=== PATIENT | female | born 1940 | race Caucasian/White ===

== ENCOUNTER 2021-04-25 18:47 | Inpatient (IN) ==
[2021-04-25] MEDS: Ondansetron ODT 4 MG TAB.RAPDIS SL PRN (20:31)
[2021-04-25] MEDS: UREA TP SCH (20:33)
[2021-04-25] MEDS: Melatonin 3 MG TABLET PO SCH (20:48)
[2021-04-25] MEDS: *HR* Glimepiride 4 MG TABLET PO SCH (20:52)
[2021-04-25] MEDS ORDERED: *HR* OxyCODONE/APAP 7.5/325 TABLET PO SCH (21:00)
[2021-04-26] MEDS: *HR* OxyCODONE/APAP 7.5/325 TABLET PO SCH ×6 (01:53→21:00)
[2021-04-26] MEDS: *HR* Enoxaparin 40 MG/0.4 ML SYRINGE SQ SCH (05:47)
[2021-04-26] MEDS: *HR* Glimepiride 4 MG TABLET PO SCH ×2 (08:22→17:46)
[2021-04-26] MEDS: Multivit/Ca/Min/Fe/FA 1 TAB TABLET PO SCH (08:23)
[2021-04-26] MEDS: Aspirin 81 MG TAB.CHEW PO SCH (08:23)
[2021-04-26] MEDS: *HR* Metformin 500 MG TABLET PO SCH ×2 (08:23→17:46)
[2021-04-26] MEDS: hydroCHLOROthiazide 25 MG TABLET PO SCH (08:23)
[2021-04-26] MEDS: amLODIPine 5 MG TABLET PO SCH (08:23)
[2021-04-26] MEDS: lisinopriL 20 MG TABLET PO SCH (08:23)
[2021-04-26] MEDS: Primidone 50 MG TABLET PO SCH (08:23)
[2021-04-26] MEDS: UREA TP SCH ×2 (08:24→20:58)
[2021-04-26] MEDS: Carbidopa/Levodopa 25/100 TABLET PO SCH ×3 (08:48→17:45)
[2021-04-26] MEDS: Melatonin 3 MG TABLET PO SCH (20:57)
[2021-04-26] MEDS: Sennosides/Docusate Sodium TABLET PO SCH (20:57)
[2021-04-27] MEDS: *HR* OxyCODONE/APAP 7.5/325 TABLET PO SCH ×6 (03:19→21:24)
[2021-04-27] MEDS: *HR* Enoxaparin 40 MG/0.4 ML SYRINGE SQ SCH (06:10)
[2021-04-27] MEDS: *HR* Metformin 500 MG TABLET PO SCH ×2 (07:56→16:30)
[2021-04-27] MEDS: *HR* Glimepiride 4 MG TABLET PO SCH ×2 (07:57→16:31)
[2021-04-27] MEDS: Aspirin 81 MG TAB.CHEW PO SCH (07:57)
[2021-04-27] MEDS: Multivit/Ca/Min/Fe/FA 1 TAB TABLET PO SCH (07:57)
[2021-04-27] MEDS: lisinopriL 20 MG TABLET PO SCH (07:57)
[2021-04-27] MEDS: Sennosides/Docusate Sodium TABLET PO SCH ×2 (07:58→21:24)
[2021-04-27] MEDS: hydroCHLOROthiazide 25 MG TABLET PO SCH (07:58)
[2021-04-27] MEDS: amLODIPine 5 MG TABLET PO SCH (07:58)
[2021-04-27] MEDS: Carbidopa/Levodopa 25/100 TABLET PO SCH ×3 (08:01→16:30)
[2021-04-27] MEDS: UREA TP SCH ×2 (08:03→21:29)
[2021-04-27] MEDS: Primidone 50 MG TABLET PO SCH (08:05)
[2021-04-27] MEDS: Ondansetron ODT 4 MG TAB.RAPDIS SL PRN (16:45)
[2021-04-27] MEDS: Melatonin 3 MG TABLET PO SCH (21:22)
[2021-04-28] MEDS: *HR* OxyCODONE/APAP 7.5/325 TABLET PO SCH ×6 (00:45→20:41)
[2021-04-28] MEDS: *HR* Enoxaparin 40 MG/0.4 ML SYRINGE SQ SCH (05:23)
[2021-04-28] MEDS: Sennosides/Docusate Sodium TABLET PO SCH ×2 (08:07→20:42)
[2021-04-28] MEDS: hydroCHLOROthiazide 25 MG TABLET PO SCH (08:07)
[2021-04-28] MEDS: Primidone 50 MG TABLET PO SCH (08:07)
[2021-04-28] MEDS: amLODIPine 5 MG TABLET PO SCH (08:08)
[2021-04-28] MEDS: Aspirin 81 MG TAB.CHEW PO SCH (08:08)
[2021-04-28] MEDS: Multivit/Ca/Min/Fe/FA 1 TAB TABLET PO SCH (08:08)
[2021-04-28] MEDS: *HR* Glimepiride 4 MG TABLET PO SCH ×2 (08:08→17:07)
[2021-04-28] MEDS: *HR* Metformin 500 MG TABLET PO SCH ×2 (08:08→17:07)
[2021-04-28] MEDS: UREA TP SCH ×2 (08:09→20:42)
[2021-04-28] MEDS: lisinopriL 20 MG TABLET PO SCH (08:09)
[2021-04-28] MEDS: Carbidopa/Levodopa 25/100 TABLET PO SCH ×3 (08:46→17:10)
[2021-04-28] MEDS: Melatonin 3 MG TABLET PO SCH (20:42)
[2021-04-29] MEDS: *HR* OxyCODONE/APAP 7.5/325 TABLET PO SCH ×6 (00:11→21:13)
[2021-04-29] MEDS: *HR* Enoxaparin 40 MG/0.4 ML SYRINGE SQ SCH (05:24)
[2021-04-29] MEDS: Aspirin 81 MG TAB.CHEW PO SCH (09:16)
[2021-04-29] MEDS: *HR* Metformin 500 MG TABLET PO SCH ×2 (09:16→17:07)
[2021-04-29] MEDS: lisinopriL 20 MG TABLET PO SCH (09:16)
[2021-04-29] MEDS: Sennosides/Docusate Sodium TABLET PO SCH ×2 (09:16→21:13)
[2021-04-29] MEDS: Multivit/Ca/Min/Fe/FA 1 TAB TABLET PO SCH (09:16)
[2021-04-29] MEDS: amLODIPine 5 MG TABLET PO SCH (09:16)
[2021-04-29] MEDS: Primidone 50 MG TABLET PO SCH (09:16)
[2021-04-29] MEDS: hydroCHLOROthiazide 25 MG TABLET PO SCH (09:16)
[2021-04-29] MEDS: Carbidopa/Levodopa 25/100 TABLET PO SCH ×3 (09:27→17:10)
[2021-04-29] MEDS: UREA TP SCH ×2 (09:27→21:13)
[2021-04-29] MEDS: *HR* Glimepiride 4 MG TABLET PO SCH (09:30)
[2021-04-29] MEDS ORDERED: D5% in Water 1,000 ML IVC PRN (10:51)
[2021-04-29] MEDS ORDERED: *HR* Dextrose 50 % in Water (Syg) 50 ML SYRINGE IVP PRN (10:51)
[2021-04-29] MEDS ORDERED: Dextrose Gel 15 GM/37.5 ML TUBE PO PRN ×2 (10:51)
[2021-04-29 16:15] LABS: Basophils % 0.5 %; Eosinophils # 0.2 K/mcL (0.0-0.6); Eosinophils % 4.3 %; Hematocrit 31.1 % (35.3-44.9); Hemoglobin 10.3 g/dL (11.5-15.4); Immature Granulocytes % 0.7 % (0-4); Lymphocytes # 0.7 K/mcL (0.6-4.6); Mean Corpuscular HGB Conc 33.1 g/dL (31.6-35.5); Mean Corpuscular Hemoglobin 29.5 pg (28.0-33.3); Mean Corpuscular Volume 89.1 fL (83.0-100.0); Mean Platelet Volume 11.6 fL (9.4-12.4); Monocytes # 0.3 K/mcL (0.0-1.3); Monocytes % 7.7 %; Neutrophils # 3.1 K/mcL (1.6-8.9); Platelet Count 171 K/mcL (140-400); Red Blood Count 3.49 M/mcL (3.82-4.97); Segmented Neutrophils % 70.8 %; White Blood Count 4.4 K/mcL (4.3-11.1)
[2021-04-29 16:30] LABS: Calcium 8.8 mg/dL (8.6-10.3); Magnesium 2.1 mg/dL (1.6-2.6); Potassium 3.9 mEq/L (3.5-5.1)
[2021-04-29] MEDS: Ondansetron ODT 4 MG TAB.RAPDIS SL PRN (19:35)
[2021-04-29] MEDS: Melatonin 3 MG TABLET PO SCH (21:13)
[2021-04-30] MEDS: *HR* OxyCODONE/APAP 7.5/325 TABLET PO SCH ×6 (01:04→20:14)
[2021-04-30] MEDS: *HR* Enoxaparin 40 MG/0.4 ML SYRINGE SQ SCH (04:24)
[2021-04-30] MEDS: Primidone 50 MG TABLET PO SCH (09:41)
[2021-04-30] MEDS: Aspirin 81 MG TAB.CHEW PO SCH (09:41)
[2021-04-30] MEDS: lisinopriL 20 MG TABLET PO SCH (09:42)
[2021-04-30] MEDS: Multivit/Ca/Min/Fe/FA 1 TAB TABLET PO SCH (09:42)
[2021-04-30] MEDS: Sennosides/Docusate Sodium TABLET PO SCH ×2 (09:42→20:14)
[2021-04-30] MEDS: amLODIPine 5 MG TABLET PO SCH (09:42)
[2021-04-30] MEDS: hydroCHLOROthiazide 25 MG TABLET PO SCH (09:42)
[2021-04-30] MEDS: *HR* Metformin 500 MG TABLET PO SCH ×2 (09:42→17:13)
[2021-04-30] MEDS: UREA TP SCH ×2 (09:43→20:14)
[2021-04-30] MEDS: Carbidopa/Levodopa 25/100 TABLET PO SCH ×4 (09:54→17:25)
[2021-04-30] MEDS: Ondansetron ODT 4 MG TAB.RAPDIS SL PRN (15:31)
[2021-04-30] MEDS: Melatonin 3 MG TABLET PO SCH (20:13)
[2021-05-01] MEDS: *HR* OxyCODONE/APAP 7.5/325 TABLET PO SCH ×6 (01:00→20:12)
[2021-05-01] MEDS: *HR* Enoxaparin 40 MG/0.4 ML SYRINGE SQ SCH (05:25)
[2021-05-01] MEDS: Sennosides/Docusate Sodium TABLET PO SCH ×2 (09:34→20:07)
[2021-05-01] MEDS: Primidone 50 MG TABLET PO SCH (09:34)
[2021-05-01] MEDS: Multivit/Ca/Min/Fe/FA 1 TAB TABLET PO SCH (09:34)
[2021-05-01] MEDS: hydroCHLOROthiazide 25 MG TABLET PO SCH (09:34)
[2021-05-01] MEDS: Aspirin 81 MG TAB.CHEW PO SCH (09:34)
[2021-05-01] MEDS: *HR* Metformin 500 MG TABLET PO SCH ×2 (09:34→17:58)
[2021-05-01] MEDS: amLODIPine 5 MG TABLET PO SCH (09:35)
[2021-05-01] MEDS: UREA TP SCH ×2 (09:35→20:07)
[2021-05-01] MEDS: lisinopriL 20 MG TABLET PO SCH (09:35)
[2021-05-01] MEDS: Carbidopa/Levodopa 25/100 TABLET PO SCH ×3 (09:51→17:59)
[2021-05-01] MEDS: Ondansetron 4 MG/2 ML VIAL IVP PRN (15:10)
[2021-05-01 15:32] LABS: Basophils % 0.6 %; Eosinophils # 0.2 K/mcL (0.0-0.6); Eosinophils % 4.4 %; Hemoglobin 10.8 g/dL (11.5-15.4); Immature Granulocytes % 0.2 % (0-4); Lymphocytes % 17.7 %; Mean Corpuscular HGB Conc 32.7 g/dL (31.6-35.5); Mean Corpuscular Hemoglobin 29.3 pg (28.0-33.3); Mean Corpuscular Volume 89.7 fL (83.0-100.0); Mean Platelet Volume 11.8 fL (9.4-12.4); Monocytes # 0.4 K/mcL (0.0-1.3); Monocytes % 8.1 %; Neutrophils # 3.8 K/mcL (1.6-8.9); Platelet Count 188 K/mcL (140-400); Red Blood Count 3.68 M/mcL (3.82-4.97); White Blood Count 5.4 K/mcL (4.3-11.1)
[2021-05-01 15:43] LABS: Albumin 3.3 g/dL (3.5-5.7); Albumin/Globulin Ratio 1.1 (1.1-2.2); Bilirubin,Total 0.5 mg/dL (0.3-1.0); Total Protein 6.3 g/dL (6.4-8.9)
[2021-05-01] MEDS: Melatonin 3 MG TABLET PO SCH (20:07)
[2021-05-02] MEDS: *HR* OxyCODONE/APAP 7.5/325 TABLET PO SCH ×6 (01:05→21:30)
[2021-05-02] MEDS: *HR* Enoxaparin 40 MG/0.4 ML SYRINGE SQ SCH (05:35)
[2021-05-02] MEDS: Aspirin 81 MG TAB.CHEW PO SCH (08:20)
[2021-05-02] MEDS: lisinopriL 20 MG TABLET PO SCH (08:20)
[2021-05-02] MEDS: amLODIPine 5 MG TABLET PO SCH (08:20)
[2021-05-02] MEDS: Multivit/Ca/Min/Fe/FA 1 TAB TABLET PO SCH (08:20)
[2021-05-02] MEDS: *HR* Metformin 500 MG TABLET PO SCH ×2 (08:20→16:40)
[2021-05-02] MEDS: Sennosides/Docusate Sodium TABLET PO SCH ×2 (08:21→21:29)
[2021-05-02] MEDS: Primidone 50 MG TABLET PO SCH (08:21)
[2021-05-02] MEDS: hydroCHLOROthiazide 25 MG TABLET PO SCH (08:21)
[2021-05-02] MEDS: Carbidopa/Levodopa 25/100 TABLET PO SCH ×3 (08:25→16:43)
[2021-05-02] MEDS: UREA TP SCH ×2 (08:26→21:32)
[2021-05-02] MEDS: Ondansetron 4 MG/2 ML VIAL IVP PRN (12:30)
[2021-05-02] MEDS ORDERED: polyethylene glycoL 3350 17 GM POWD.PACK PO PRN (13:59)
[2021-05-02] MEDS: Insulin LISPRO 300 UNITS/3 ML VIAL SUBQ SCH ×2 (16:41→21:42)
[2021-05-02] MEDS: Melatonin 3 MG TABLET PO SCH (21:30)
[2021-05-03] MEDS: *HR* OxyCODONE/APAP 7.5/325 TABLET PO SCH ×3 (01:46→08:31)
[2021-05-03] MEDS: *HR* Enoxaparin 40 MG/0.4 ML SYRINGE SQ SCH (05:12)
[2021-05-03] MEDS: Ondansetron 4 MG/2 ML VIAL IVP PRN ×2 (05:18→11:37)
[2021-05-03] MEDS: *HR* Metformin 500 MG TABLET PO SCH ×2 (08:31→16:58)
[2021-05-03] MEDS: hydroCHLOROthiazide 25 MG TABLET PO SCH (08:31)
[2021-05-03] MEDS: lisinopriL 20 MG TABLET PO SCH (08:31)
[2021-05-03] MEDS: Sennosides/Docusate Sodium TABLET PO SCH ×2 (08:31→20:23)
[2021-05-03] MEDS: amLODIPine 5 MG TABLET PO SCH (08:31)
[2021-05-03] MEDS: Aspirin 81 MG TAB.CHEW PO SCH (08:31)
[2021-05-03] MEDS: Multivit/Ca/Min/Fe/FA 1 TAB TABLET PO SCH (08:31)
[2021-05-03] MEDS: Primidone 50 MG TABLET PO SCH (08:31)
[2021-05-03] MEDS: Insulin LISPRO 300 UNITS/3 ML VIAL SUBQ SCH ×4 (08:32→20:25)
[2021-05-03] MEDS: UREA TP SCH ×2 (08:32→20:25)
[2021-05-03] MEDS: Carbidopa/Levodopa 25/100 TABLET PO SCH ×3 (08:37→16:58)
[2021-05-03] MEDS ORDERED: *HR* OxyCODONE/APAP 7.5/325 TABLET PO PRN (11:55)
[2021-05-03] MEDS ORDERED: *HR* Labetalol 20 MG/4 ML SYRINGE IVP ONE (12:14)
[2021-05-03] MEDS ORDERED: *HR* Promethazine 25 MG/ML VIAL IM ONE (12:15)
[2021-05-03] MEDS: Melatonin 3 MG TABLET PO SCH (20:24)
[2021-05-04] MEDS: *HR* Enoxaparin 40 MG/0.4 ML SYRINGE SQ SCH (05:43)
[2021-05-04] MEDS: Insulin LISPRO 300 UNITS/3 ML VIAL SUBQ SCH ×4 (07:42→21:16)
[2021-05-04] MEDS: Primidone 50 MG TABLET PO SCH (09:06)
[2021-05-04] MEDS: amLODIPine 5 MG TABLET PO SCH (09:07)
[2021-05-04] MEDS: Aspirin 81 MG TAB.CHEW PO SCH (09:07)
[2021-05-04] MEDS: lisinopriL 20 MG TABLET PO SCH (09:07)
[2021-05-04] MEDS: Multivit/Ca/Min/Fe/FA 1 TAB TABLET PO SCH (09:07)
[2021-05-04] MEDS: Sennosides/Docusate Sodium TABLET PO SCH ×2 (09:07→20:38)
[2021-05-04] MEDS: hydroCHLOROthiazide 25 MG TABLET PO SCH (09:08)
[2021-05-04] MEDS: UREA TP SCH ×2 (09:08→20:39)
[2021-05-04] MEDS: Carbidopa/Levodopa 25/100 TABLET PO SCH ×3 (09:12→16:20)
[2021-05-04] MEDS: Neosporin OINT 15 GM TUBE TP SCH ×2 (16:20→20:39)
[2021-05-04] MEDS: Melatonin 3 MG TABLET PO SCH (20:38)
[2021-05-05] MEDS: *HR* Enoxaparin 40 MG/0.4 ML SYRINGE SQ SCH (05:00)
[2021-05-05] MEDS: Insulin LISPRO 300 UNITS/3 ML VIAL SUBQ SCH ×4 (07:44→20:37)
[2021-05-05] MEDS: Aspirin 81 MG TAB.CHEW PO SCH (08:23)
[2021-05-05] MEDS: lisinopriL 20 MG TABLET PO SCH (08:23)
[2021-05-05] MEDS: amLODIPine 5 MG TABLET PO SCH (08:24)
[2021-05-05] MEDS: Multivit/Ca/Min/Fe/FA 1 TAB TABLET PO SCH (08:24)
[2021-05-05] MEDS: Primidone 50 MG TABLET PO SCH (08:24)
[2021-05-05] MEDS: Sennosides/Docusate Sodium TABLET PO SCH ×2 (08:24→20:36)
[2021-05-05] MEDS: Neosporin OINT 15 GM TUBE TP SCH ×3 (08:24→20:37)
[2021-05-05] MEDS: hydroCHLOROthiazide 25 MG TABLET PO SCH (08:24)
[2021-05-05] MEDS: UREA TP SCH ×2 (08:25→20:37)
[2021-05-05] MEDS: Carbidopa/Levodopa 25/100 TABLET PO SCH ×3 (08:33→15:34)
[2021-05-05] MEDS: Melatonin 3 MG TABLET PO SCH (20:36)
[2021-05-06] MEDS: *HR* Enoxaparin 40 MG/0.4 ML SYRINGE SQ SCH (06:13)
[2021-05-06] MEDS: Insulin LISPRO 300 UNITS/3 ML VIAL SUBQ SCH ×2 (07:47→12:32)
[2021-05-06] MEDS: Multivit/Ca/Min/Fe/FA 1 TAB TABLET PO SCH (07:50)
[2021-05-06] MEDS: Carbidopa/Levodopa 25/100 TABLET PO SCH ×3 (07:50→16:37)
[2021-05-06] MEDS: Primidone 50 MG TABLET PO SCH (07:51)
[2021-05-06] MEDS: hydroCHLOROthiazide 25 MG TABLET PO SCH (07:51)
[2021-05-06] MEDS: Aspirin 81 MG TAB.CHEW PO SCH (07:51)
[2021-05-06] MEDS: lisinopriL 20 MG TABLET PO SCH (07:51)
[2021-05-06] MEDS: Sennosides/Docusate Sodium TABLET PO SCH ×2 (07:51→19:33)
[2021-05-06] MEDS: UREA TP SCH ×2 (07:52→19:52)
[2021-05-06] MEDS: amLODIPine 5 MG TABLET PO SCH (07:52)
[2021-05-06] MEDS: Neosporin OINT 15 GM TUBE TP SCH ×3 (08:09→19:34)
[2021-05-06 08:21] LABS: Basophils % 0.6 %; Eosinophils # 0.2 K/mcL (0.0-0.6); Hematocrit 31.2 % (35.3-44.9); Hemoglobin 10.4 g/dL (11.5-15.4); Immature Granulocytes % 0.4 % (0-4); Lymphocytes # 1.2 K/mcL (0.6-4.6); Lymphocytes % 24.4 %; Mean Corpuscular HGB Conc 33.3 g/dL (31.6-35.5); Mean Corpuscular Hemoglobin 29.5 pg (28.0-33.3); Mean Corpuscular Volume 88.6 fL (83.0-100.0); Mean Platelet Volume 12.3 fL (9.4-12.4); Monocytes # 0.5 K/mcL (0.0-1.3); Monocytes % 10.7 %; Neutrophils # 2.8 K/mcL (1.6-8.9); Platelet Count 178 K/mcL (140-400); Red Blood Count 3.52 M/mcL (3.82-4.97); Red Cell Distribution Width 14.8 % (11.5-14.5); Segmented Neutrophils % 59.9 %; White Blood Count 4.8 K/mcL (4.3-11.1)
[2021-05-06 08:38] LABS: BUN/Creatinine Ratio 20 (6-26); Blood Urea Nitrogen 21 mg/dL (8-23); Calcium 9.4 mg/dL (8.6-10.3); Carbon Dioxide 33 mEq/L (23-29); Chloride 99 mEq/L (98-107); Glucose 109 mg/dL (70-105); Osmolality,Calculated 290 (280-300); Potassium 3.5 mEq/L (3.5-5.1); Sodium 138 mEq/L (136-145); eGFR For African Americans > 60 (> 60); eGFR For Non-African Americans 51 (> 60)
[2021-05-06] MEDS: polyethylene glycoL 3350 17 GM POWD.PACK PO SCH ×2 (12:31→19:35)
[2021-05-06] MEDS: Nystatin POWDER 30 GM BOTTLE TP SCH ×2 (12:33→19:31)
[2021-05-06] MEDS: Melatonin 3 MG TABLET PO SCH (19:34)
[2021-05-07] MEDS: *HR* Enoxaparin 40 MG/0.4 ML SYRINGE SQ SCH (05:40)
[2021-05-07] MEDS: Sennosides/Docusate Sodium TABLET PO SCH ×2 (08:57→19:46)
[2021-05-07] MEDS: hydroCHLOROthiazide 25 MG TABLET PO SCH (08:58)
[2021-05-07] MEDS: lisinopriL 20 MG TABLET PO SCH (08:58)
[2021-05-07] MEDS: Carbidopa/Levodopa 25/100 TABLET PO SCH ×3 (08:58→15:58)
[2021-05-07] MEDS: amLODIPine 5 MG TABLET PO SCH (08:58)
[2021-05-07] MEDS: Multivit/Ca/Min/Fe/FA 1 TAB TABLET PO SCH (08:58)
[2021-05-07] MEDS: Aspirin 81 MG TAB.CHEW PO SCH (08:58)
[2021-05-07] MEDS: Primidone 50 MG TABLET PO SCH (08:59)
[2021-05-07] MEDS: polyethylene glycoL 3350 17 GM POWD.PACK PO SCH ×2 (08:59→19:45)
[2021-05-07] MEDS: Neosporin OINT 15 GM TUBE TP SCH ×3 (09:00→19:50)
[2021-05-07] MEDS: UREA TP SCH ×2 (09:00→19:50)
[2021-05-07] MEDS: Nystatin POWDER 30 GM BOTTLE TP SCH ×2 (09:03→19:50)
[2021-05-07] MEDS ORDERED: Simethicone 80 MG TAB.CHEW PO PRN (13:51)
[2021-05-07] MEDS: Melatonin 3 MG TABLET PO SCH (19:47)
[2021-05-08] MEDS: *HR* Enoxaparin 40 MG/0.4 ML SYRINGE SQ SCH (05:35)
[2021-05-08] MEDS: lisinopriL 20 MG TABLET PO SCH (08:02)
[2021-05-08] MEDS: Primidone 50 MG TABLET PO SCH (08:02)
[2021-05-08] MEDS: Aspirin 81 MG TAB.CHEW PO SCH (08:02)
[2021-05-08] MEDS: amLODIPine 5 MG TABLET PO SCH (08:02)
[2021-05-08] MEDS: Multivit/Ca/Min/Fe/FA 1 TAB TABLET PO SCH (08:02)
[2021-05-08] MEDS: hydroCHLOROthiazide 25 MG TABLET PO SCH (08:02)
[2021-05-08] MEDS: Sennosides/Docusate Sodium TABLET PO SCH ×2 (08:03→21:02)
[2021-05-08] MEDS: polyethylene glycoL 3350 17 GM POWD.PACK PO SCH ×2 (08:03→21:01)
[2021-05-08] MEDS: Neosporin OINT 15 GM TUBE TP SCH ×3 (08:03→21:14)
[2021-05-08] MEDS: UREA TP SCH ×2 (08:04→21:03)
[2021-05-08] MEDS: Nystatin POWDER 30 GM BOTTLE TP SCH ×2 (08:05→21:01)
[2021-05-08] MEDS: Carbidopa/Levodopa 25/100 TABLET PO SCH ×3 (09:50→16:08)
[2021-05-08] MEDS ORDERED: Bisacodyl 10 MG RECTAL SUPPOSITORY RC PRN (15:31)
[2021-05-08] MEDS: Melatonin 3 MG TABLET PO SCH (21:01)
[2021-05-09] MEDS: *HR* Enoxaparin 40 MG/0.4 ML SYRINGE SQ SCH (05:55)
[2021-05-09] MEDS: Sennosides/Docusate Sodium TABLET PO SCH ×2 (08:56→21:17)
[2021-05-09] MEDS: Carbidopa/Levodopa 25/100 TABLET PO SCH ×3 (08:56→17:04)
[2021-05-09] MEDS: Primidone 50 MG TABLET PO SCH (08:56)
[2021-05-09] MEDS: amLODIPine 5 MG TABLET PO SCH (08:56)
[2021-05-09] MEDS: Aspirin 81 MG TAB.CHEW PO SCH (08:56)
[2021-05-09] MEDS: polyethylene glycoL 3350 17 GM POWD.PACK PO SCH ×2 (08:56→20:47)
[2021-05-09] MEDS: lisinopriL 20 MG TABLET PO SCH (08:56)
[2021-05-09] MEDS: Multivit/Ca/Min/Fe/FA 1 TAB TABLET PO SCH (08:56)
[2021-05-09] MEDS: hydroCHLOROthiazide 25 MG TABLET PO SCH (08:57)
[2021-05-09] MEDS: UREA TP SCH ×2 (08:57→20:46)
[2021-05-09] MEDS: Nystatin POWDER 30 GM BOTTLE TP SCH ×2 (08:58→20:48)
[2021-05-09] MEDS: Neosporin OINT 15 GM TUBE TP SCH ×3 (08:58→20:45)
[2021-05-09] MEDS: Melatonin 3 MG TABLET PO SCH (20:44)
[2021-05-10] MEDS: *HR* Enoxaparin 40 MG/0.4 ML SYRINGE SQ SCH (05:49)
[2021-05-10] MEDS: Carbidopa/Levodopa 25/100 TABLET PO SCH ×3 (07:56→17:07)
[2021-05-10] MEDS: Primidone 50 MG TABLET PO SCH (07:56)
[2021-05-10] MEDS: amLODIPine 5 MG TABLET PO SCH (07:57)
[2021-05-10] MEDS: Nystatin POWDER 30 GM BOTTLE TP SCH ×2 (07:57→22:46)
[2021-05-10] MEDS: UREA TP SCH ×2 (07:57→22:45)
[2021-05-10] MEDS: Neosporin OINT 15 GM TUBE TP SCH ×3 (07:57→22:45)
[2021-05-10] MEDS: lisinopriL 20 MG TABLET PO SCH (07:57)
[2021-05-10] MEDS: Multivit/Ca/Min/Fe/FA 1 TAB TABLET PO SCH (07:57)
[2021-05-10] MEDS: polyethylene glycoL 3350 17 GM POWD.PACK PO SCH ×3 (07:57→22:44)
[2021-05-10] MEDS: Aspirin 81 MG TAB.CHEW PO SCH (07:57)
[2021-05-10] MEDS: Sennosides/Docusate Sodium TABLET PO SCH ×3 (07:57→22:45)
[2021-05-10] MEDS: hydroCHLOROthiazide 25 MG TABLET PO SCH (07:57)
[2021-05-10] MEDS: Melatonin 3 MG TABLET PO SCH (22:44)
[2021-05-11] MEDS: *HR* Enoxaparin 40 MG/0.4 ML SYRINGE SQ SCH (06:28)
[2021-05-11] MEDS: polyethylene glycoL 3350 17 GM POWD.PACK PO SCH ×2 (10:05→20:29)
[2021-05-11] MEDS: lisinopriL 20 MG TABLET PO SCH (10:06)
[2021-05-11] MEDS: Aspirin 81 MG TAB.CHEW PO SCH (10:06)
[2021-05-11] MEDS: Primidone 50 MG TABLET PO SCH (10:06)
[2021-05-11] MEDS: amLODIPine 5 MG TABLET PO SCH (10:06)
[2021-05-11] MEDS: Multivit/Ca/Min/Fe/FA 1 TAB TABLET PO SCH (10:06)
[2021-05-11] MEDS: hydroCHLOROthiazide 25 MG TABLET PO SCH (10:07)
[2021-05-11] MEDS: UREA TP SCH ×2 (10:08→20:30)
[2021-05-11] MEDS: Nystatin POWDER 30 GM BOTTLE TP SCH ×2 (10:09→20:30)
[2021-05-11] MEDS: Sennosides/Docusate Sodium TABLET PO SCH ×2 (10:13→20:29)
[2021-05-11] MEDS: Neosporin OINT 15 GM TUBE TP SCH ×3 (10:13→20:30)
[2021-05-11] MEDS: Carbidopa/Levodopa 25/100 TABLET PO SCH ×3 (10:19→17:26)
[2021-05-11] MEDS: Melatonin 3 MG TABLET PO SCH (20:29)
[2021-05-12] MEDS: *HR* Enoxaparin 40 MG/0.4 ML SYRINGE SQ SCH (06:14)
[2021-05-12] MEDS: Sennosides/Docusate Sodium TABLET PO SCH ×2 (08:41→20:46)
[2021-05-12] MEDS: Aspirin 81 MG TAB.CHEW PO SCH (08:41)
[2021-05-12] MEDS: lisinopriL 20 MG TABLET PO SCH (08:42)
[2021-05-12] MEDS: Primidone 50 MG TABLET PO SCH (08:42)
[2021-05-12] MEDS: Multivit/Ca/Min/Fe/FA 1 TAB TABLET PO SCH (08:42)
[2021-05-12] MEDS: hydroCHLOROthiazide 25 MG TABLET PO SCH (08:42)
[2021-05-12] MEDS: amLODIPine 5 MG TABLET PO SCH (08:42)
[2021-05-12] MEDS: polyethylene glycoL 3350 17 GM POWD.PACK PO SCH ×2 (08:43→20:45)
[2021-05-12] MEDS: UREA TP SCH ×2 (08:45→20:45)
[2021-05-12] MEDS: Neosporin OINT 15 GM TUBE TP SCH ×3 (08:46→20:45)
[2021-05-12] MEDS: Carbidopa/Levodopa 25/100 TABLET PO SCH ×3 (08:46→17:10)
[2021-05-12] MEDS: Nystatin POWDER 30 GM BOTTLE TP SCH ×2 (08:47→20:45)
[2021-05-12] MEDS ORDERED: FLU Vac QV 21-22 (6Month+)/PF 0.5 ML SYRINGE IM ONE (11:24)
[2021-05-12] MEDS: Melatonin 3 MG TABLET PO SCH (20:44)
[2021-05-13] MEDS: *HR* Enoxaparin 40 MG/0.4 ML SYRINGE SQ SCH (05:31)
[2021-05-13 06:55] VITALS: BP 156/65; PULSE 63; RESP 19; TEMP 98.1; O2SAT 94
[2021-05-13] MEDS: polyethylene glycoL 3350 17 GM POWD.PACK PO SCH (09:01)
[2021-05-13] MEDS: Sennosides/Docusate Sodium TABLET PO SCH (09:02)
[2021-05-13] MEDS: lisinopriL 20 MG TABLET PO SCH (09:10)
[2021-05-13] MEDS: Multivit/Ca/Min/Fe/FA 1 TAB TABLET PO SCH (09:10)
[2021-05-13] MEDS: Aspirin 81 MG TAB.CHEW PO SCH (09:10)
[2021-05-13] MEDS: amLODIPine 5 MG TABLET PO SCH (09:10)
[2021-05-13] MEDS: Primidone 50 MG TABLET PO SCH (09:10)
[2021-05-13] MEDS: UREA TP SCH (09:10)
[2021-05-13] MEDS: hydroCHLOROthiazide 25 MG TABLET PO SCH (09:10)
[2021-05-13] MEDS: Neosporin OINT 15 GM TUBE TP SCH (09:11)
[2021-05-13] MEDS: Nystatin POWDER 30 GM BOTTLE TP SCH (09:11)
[2021-05-13] MEDS: Carbidopa/Levodopa 25/100 TABLET PO SCH ×2 (09:13→11:10)
== END 2021-05-13 14:25 | disposition home health service (06) | DRG 536 ==
LOC: INPPIK 19:31
PROVIDERS: ADMIT Internal Medicine; ATTEND Internal Medicine